=== PATIENT | female | born 1995 | race Caucasian/White ===

== ENCOUNTER 2017-02-03 10:49 | Emergency (ER) | payer OTHER ==
[2017-02-03 11:28] VITALS: BP 118/63
--- NOTE | 2017-02-03 12:12 | UC ---
Abdominal Pain Female HPI - HPI Summary HPI Summary: right lower abd pain, nausea but no vomiting---not hungry today--pain was worse last nigh - History of Current Complaint Chief Complaint: UCAbdominalPain Stated Complaint: RIGHT ABD SIDE/BACK PAIN Time Seen by Provider: 02/03/17 11:45 Hx Obtained From: Patient Hx Last Menstrual Period: Nexplanon ?: Yes Onset/Duration: Gradual Onset, Lasting Days Timing: Constant Severity Initially: Mild Severity Currently: Moderate Pain Intensity: 7 Pain Scale Used: 0-10 Numeric Location: Discrete At: RLQ Radiates: No Character: Aching, Colicy, Cramping Aggravating Factor(s): Nothing Alleviating Factor(s): Nothing Associated Signs and Symptoms: Positive: Negative Allergies/Adverse Reactions: Allergies Allergy/AdvReac Type Severity Reaction Status Date / Time No Known Allergies Allergy Verified 02/03/17 11:20 Home Medications: Home Medications Etonogestrel [Nexplanon] 1 imp ONCE 02/03/17 [History Confirmed 02/03/17] PMH/Surg Hx/FS Hx/Imm Hx Previously Healthy: Yes - Surgical History Surgical History: Yes Surgery Procedure, Year, and Place: tubes bilateral 1997 - Family History Known Family History: Positive: Diabetes - Social History Occupation: Student Lives: With Family Alcohol Use: None Substance Use Type: None Smoking Status (MU): Never Smoked Tobacco Have You Smoked in the Last Year: No - Immunization History Most Recent Influenza Vaccination: NONE 2016 Vaccination Up to Date: Yes Review of Systems Constitutional: Negative Skin: Negative Eyes: Negative ENT: Negative Respiratory: Negative Cardiovascular: Negative Gastrointestinal: Abdominal Pain, Nausea Genitourinary: Negative Motor: Negative Neurovascular: Negative Musculoskeletal: Negative Neurological: Negative Psychological: Negative Is Patient Immunocompromised?: No All Other Systems Reviewed And Are Negative: Yes Physical Exam Triage Information Reviewed: Yes Appearance: Well-Nourished, Ill-Appearing - mild, Pain Distress - mild Vital Signs: Initial Vital Signs Temp 98.1 F 02/03/17 11:21 Pulse 99 02/03/17 11:21 Resp 18 02/03/17 11:21 BP 118/63 02/03/17 11:21 Pulse Ox 100 02/03/17 11:21 Vital Signs Reviewed: Yes Eye Exam: Normal Eyes: Positive: Conjunctiva Clear ENT Exam: Normal ENT: Positive: Normal ENT inspection, Hearing grossly normal. Negative: Nasal congestion, Nasal drainage, Trismus, Muffled/hoarse voice Dental Exam: Normal Neck exam: Normal Neck: Positive: Supple, Nontender Respiratory Exam: Normal Respiratory: Positive: Chest non-tender, Lungs clear, Normal breath sounds, No respiratory distress, No accessory muscle use Cardiovascular Exam: Normal Cardiovascular: Positive: RRR, No Murmur, Pulses Normal, Brisk Capillary Refill Abdominal Exam: Normal Abdomen Description: Positive: No Organomegaly, Soft, Distended. Negative: CVA Tenderness (R), CVA Tenderness (L) Bowel Sounds: Positive: Present Musculoskeletal Exam: Normal Musculoskeletal: Positive: Strength Intact, ROM Intact Neurological Exam: Normal Neurological: Positive: Alert, Muscle Tone Normal Psychological Exam: Normal Skin Exam: Normal Diagnostics - Laboratory Diagnostic Studies Completed/Ordered: UA---WNL Abd Pain Female Course/Dx - Course Course Of Treatment: NPO transfer to hospital for a higher leverl of care - Differential Dx/Diagnosis Differential Diagnosis: Pelvic Inflammatory Disease, Renal Colic, Urinary Tract Infection Provider Diagnoses: Hematuria, UTI Discharge - Discharge Plan Condition: Fair Disposition: OTHER Discharge Disposition Comment: transfer to ed for further evaluation pt is [facility] Patient Education Materials: Acute Abdominal Pain (ED) Referrals: Sonu Spears MD [Primary Care Provider] - Additional Instructions: we are recommending that you go directlyu to the emergency department for further assessment of your abdomen pain---nothing to eat or drink until evaluated in the emergency department
== END 2017-02-03 12:25 ==
LOC: UCCORT 10:49
DX: N39.0 Urinary tract infection, site not specified (principal); R31.9 Hematuria, unspecified; R11.0 Nausea; Z32.02 Encounter for pregnancy test, result negative
CPT/HCPCS: 81003; 84702; 99202; G0463